=== PATIENT | male | born 1990 | race African-American/Black ===

== ENCOUNTER 2019-10-03 12:17 | Emergency (ER) | payer MEDICARE, BC, SELFPAY ==
[2019-10-03] VITALS (9 sets, daily range): BP systolic 78–104; BP diastolic 58–66; PULSE 65–94; RESP 17–21; TEMP 36.7; O2SAT 97–99
--- NOTE | 2019-10-03 12:20 | ECG_ITS ---
Measurements Intervals [place] Rate: 90 P: 55 FL: 137 QRS: -35 QRSD: 98 T: 9 QT: 366 QTc: 449 Interpretive Statements SINUS RHYTHM LEFT ATRIAL ENLARGEMENT LEFT AXIS DEVIATION POSSIBLE LEFT VENTRICULAR HYPERTROPHY BORDERLINE T WAVE ABNORMALITY- INFERIOR LEADS BASELINE WANDER- I, II, AVR, V1 BORDERLINE ECG Electronically Signed On 10-03-2019 13:19:36 CDT by Artur Benjamin D.O.
[2019-10-03 12:39] LABS: Basophils Percent Auto 0.4 % (0.2-1.2); Eosinophils Absolute Auto 0.1 K/mm3 (0-0.3); Eosinophils Percent Auto 1.9 % (0-4.4); Hematocrit 52.9 % (42.0-52.0); Hemoglobin 17.4 g/dL (14.0-18.0); Immature Granulocyte Absolute 0.01 K/mm3 (0.00-0.031); Immature Granulocyte Percent A 0.2 % (0-0.5); Lymphocytes Percent Auto 30.2 % (18.3-44.2); Mean Corpuscular HGB Conc 32.9 g/dl (32-36); Mean Corpuscular Volume 100.4 fl (80-100); Mean Platelet Volume 9.4 fl (7.4-10.4); Monocytes Absolute Auto 0.8 K/mm3 (0.1-0.6); Monocytes Percent Auto 17.1 % (2.6-8.5); Neutrophils Absolute Auto 2.3 K/mm3 (1.3-6.7); Neutrophils Percent Auto 50.2 % (45.5-73.1); Platelet Count Result 184 k/mm3 (150-375); Red Blood Count 5.27 M/mm3 (4.6-6.20); Red Cell Distribution Width 19.8 % (11.5-14.5); White Blood Count 4.6 K/mm3 (4.5-10.0)
[2019-10-03 12:52] LABS: Alanine Aminotransferase 32 U/L (4-50); Albumin Level 4.6 g/dL (3.5-5.1); Alkaline Phosphatase 190 U/L (38-126); Aspartate Amino Transferase 51 U/L (17-59); Bilirubin,Total 0.7 mg/dL (0.2-1.3); Blood Urea Nitrogen 35 mg/dL (9-20); Calcium 8.7 mg/dL (8.4-10.2); Carbon Dioxide 29 mmol/L (22-30); Chloride 97 mmol/L (98-107); Estimated CRCL calculation 10 ml/min; Estimated Glomerular Filt Rate 9; Glucose 100 mg/dL (75-110); Potassium 4.5 mmol/L (3.4-5.0); Sodium 138 mmol/L (137-145)
[2019-10-03] MEDS: SODIUM CHLORIDE 0.9% IV 500 ML 999 ML IV CONT ×2 (13:06→13:42)
[2019-10-03 13:25] LABS: Lactic Acid Reflex 1.4 mmol/L (0.7-2.1)
--- NOTE | 2019-10-03 13:45 | ED.WEAKNESS ---
HPI - Weakness General Chief complaint: Weakness Stated complaint: low bp Time Seen by Provider: 10/03/19 12:21 Source: patient Mode of arrival: ambulatory Limitations: no limitations History of Present Illness HPI Narrative: Patient is a 29-year-old male who presents to emergency department for evaluation of feeling weak took his blood pressure at home and noted that it was low patient had dialysis yesterday denies any recent illness injury or trauma or other complaints or any pain and on arrival is resting comfortably in the room in no distress patient is followed by nephrology. Patient on arrival is noted in no distress presents with normal gait Related Data Home Medications Medication Instructions Recorded Confirmed calcium acetate(phosphat bind) mg 10/03/19 dolutegravir-rilpivirine [Juluca] tablet PO 10/03/19 Allergies Allergy/AdvReac Type Severity Reaction Status Date / Time No Known Allergies Allergy Unverified 10/03/19 12:36 Review of Systems Review of Systems: All systems reviewed & are unremarkable except as noted in HPI and below PMFSH Past Medical History Medical History (Updated 10/03/19 @ 14:59 by Quincy Taveras PA-C) Chronic kidney disease Dependence on renal dialysis HIV (human immunodeficiency virus infection) Social History Social History (Updated 10/03/19 @ 13:49 by Quincy Taveras PA-C) Smoking status: Never smoker Gender identity (if verbalized by the patient): Male Exam Narrative: Exam Narrative: GENERAL: Well-appearing, well-nourished, and in no acute distress. HEAD: Normocephalic, atraumatic. EYES: PERRLA and EOMI. ENT: Nares clear, no rhinorrhea or epistaxis. Mucous membranes moist. Oropharynx without tonsillar hypertrophy exudate or other lesions. NECK: Supple. No adenopathy or masses CHEST: Clear to auscultation. No respiratory distress. No wheezes rales or rhonchi HEART: Regular rate and rhythm. No murmur heard. Normal peripheral pulses. ABDOMEN: Soft, nontender, nondistended EXTREMITIES: Normal range of motion. No edema. SKIN: Warm, dry, no rash. NEURO: No focal deficits. Alert and oriented x3. Cranial nerves II through XII grossly intact PSYCH: Normal mood and affect. Course Course Emergency Course: Discussed case with pressure tester operator who would like the patient to be seen in clinic tomorrow to hold his blood pressure medications until tomorrow agrees with the plan Consultations Consultation #1: Discussed case with Dr. Metz nephrology who would like the patient to hold blood pressure medicine and to be reevaluated in clinic tomorrow Date: 10/03/19 Vital Signs Vital signs: Vital Signs Temperature 98.1 F 10/03/19 12:23 Pulse Rate 93 10/03/19 12:23 Respiratory Rate 18 10/03/19 12:23 Blood Pressure 92/58 L 10/03/19 12:23 Pulse Oximetry 98 10/03/19 12:23 Temperature 98.1 F 10/03/19 12:23 Pulse Rate 71 10/03/19 14:49 Respiratory Rate 18 10/03/19 14:49 Blood Pressure 104/66 10/03/19 14:49 Pulse Oximetry 98 10/03/19 14:49 MDM - Weakness MDM Narrative Medical decision making narrative: Patient in the room at this time resting comfortably was able to ambulate without difficulty was not orthostatic was hydrated is aware of discussion with his pressure tester operator and will follow in clinic tomorrow. Patient is afebrile nontoxic-appearing no distress. Patient provided with reasons to return and agrees to do so if symptoms worsen. Patient may have been over dialyzed and coupled with his blood pressure medication may be the current issue. Patient will hold his blood pressure medicine and be seen tomorrow in clinic Lab Data Result diagrams: 10/03/19 12:32 10/03/19 12:32 Labs: Lab Results 10/03/19 10/03/19 10/03/19 Range/Units 12:32 12:32 13:07 WBC 4.6 (4.5-10.0) K/mm3 RBC 5.27 (4.6-6.20) M/mm3 Hgb 17.4 (14.0-18.0) g/dL Hct 52.9 H (42.0-52.0) % MCV 100.4 H (80-100) fl MCH
== END 2019-10-03 15:11 | disposition home or self-care (01) ==
PROVIDERS: Emergency Medicine Emergency Medical Services; Emergency Provider Emergency Medicine
DX: I95.9 Hypotension, unspecified (principal); N18.6 End stage renal disease; Z99.2 Dependence on renal dialysis; Z21 Asymptomatic human immunodeficiency virus [HIV] infection status
CPT/HCPCS: 36415; 80053; 83605; 85025; 93005; 96360; 96361; 99284; J7040

== ENCOUNTER 2020-04-18 18:35 | Observation (INO) | payer BC, MEDICARE, SELFPAY ==
[2020-04-18] VITALS (9 sets, daily range): BP systolic 107–122; BP diastolic 61–85; PULSE 54–87; RESP 16–21; TEMP 36.6; O2SAT 100; BMI 19.7
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
--- NOTE | ~2020-04-18 | US_ITS ---
EXAMINATION: US carotid duplex BI DATE: 04/19/2020 07:54 INDICATION: Syncope TECHNIQUE: Grayscale, color Doppler, and pulsed Doppler images of the cervical carotid arteries were obtained. The degree of vessel stenosis is placed in one of the following categories: normal, <50%, 5 0-69%, >=70% but less than near-occlusion, near-occlusion, or total occlusion. Note that percent sten osis relative to normal distal artery lumen diameter is indirectly measured from velocity measurement s as described by Usman, et al. Radiology 2003; 229:340-346. COMPARISON: None. FINDINGS: RIGHT: The right common carotid artery (CCA) peak systolic velocity (PSV) is 165 cm/s. The right internal ca rotid artery (ICA) PSV is 101 cm/s. The right ICA end-diastolic velocity (EDV) is 21 cm/s. The right ICA/CCA PSV ratio is 0.6. Grayscale and color Doppler images demonstrate no stenosis or plaque in the ICA. The external carotid artery (ECA) PSV is 130 cm/s. There is antegrade flow in the right vertebr al artery. LEFT: The left CCA PSV is 138 cm/s. The left ICA PSV is 114 cm/s. The left ICA EDV is 14 cm/s. The left ICA /CCA PSV ratio is 0.8. Grayscale and color Doppler images demonstrate no stenosis or plaque in the IC A. The ECA PSV is 128 cm/s. There is antegrade flow in the left vertebral artery. IMPRESSION: 1. Normal study with no evident plaque or stenosis in the bilateral carotid arteries. Reviewed, dictated and finalized at location A. IMPRESSION: 1. Normal study with no evident plaque or stenosis in the bilateral carotid art maricruz.
--- NOTE | 2020-04-18 18:39 | ECG_ITS ---
Measurements Intervals [place] Rate: 72 P: 50 AL: 145 QRS: -30 QRSD: 105 T: 16 QT: 391 QTc: 429 Interpretive Statements SINUS RHYTHM POSSIBLE LEFT ATRIAL ENLARGEMENT POSSIBLE LEFT VENTRICULAR HYPERTROPHY ST ELEVATION IN ANTERIOR LEADS WITH PEAKED T WAVES- CONSIDER EARLY REPOLARIZATION, ISCHEMIA OR HYPERKALEMIA BORDERLINE T WAVE ABNORMALITY- INFERIOR LEADS BASELINE WANDER- AVR, AVL, AVF, V2, V4 ABNORMAL ECG Electronically Signed On 04-19-2020 7:32:21 CDT by Artur Benjamin D.O.
[2020-04-18 18:50] LABS: Basophils Percent Auto 0.5 % (0.2-1.2); Eosinophils Absolute Auto 0.1 K/mm3 (0-0.3); Eosinophils Percent Auto 3.3 % (0-4.4); Hematocrit 52.3 % (42.0-52.0); Hemoglobin 17.3 g/dL (14.0-18.0); Immature Granulocyte Absolute 0.01 K/mm3 (0.00-0.031); Immature Granulocyte Percent A 0.2 % (0-0.5); Lymphocytes Absolute Auto 1.47 K/mm3 (0.9-3.2); Lymphocytes Percent Auto 34.3 % (18.3-44.2); Mean Corpuscular HGB Conc 33.1 g/dl (32-36); Mean Corpuscular Volume 108.7 fl (80-100); Mean Platelet Volume 9.8 fl (7.4-10.4); Monocytes Absolute Auto 0.5 K/mm3 (0.1-0.6); Monocytes Percent Auto 10.5 % (2.6-8.5); Neutrophils Absolute Auto 2.2 K/mm3 (1.3-6.7); Neutrophils Percent Auto 51.2 % (45.5-73.1); Platelet Count Result 159 k/mm3 (150-375); Red Blood Count 4.81 M/mm3 (4.6-6.20); Red Cell Distribution Width 15.5 % (11.5-14.5); White Blood Count 4.3 K/mm3 (4.5-10.0)
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
[2020-04-18 19:56] LABS: Anion Gap 14 mmol/L (8-16); Blood Urea Nitrogen 52 mg/dL (9-20); Calcium 8.7 mg/dL (8.4-10.2); Carbon Dioxide 32 mmol/L (22-30); Chloride 92 mmol/L (98-107); Estimated CRCL calculation 7 ml/min; Estimated Glomerular Filt Rate 6; Glucose 104 mg/dL (75-110); Potassium 4.5 mmol/L (3.4-5.0); Sodium 138 mmol/L (137-145)
[2020-04-18 20:08] LABS: Troponin I 0.066 ng/mL (0.000-0.034)
[2020-04-18] MEDS: ASPIRIN 81 MG CHEWABLE TABLET 324 MG PO (20:34)
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
--- NOTE | 2020-04-18 21:52 | PC.NURSE ---
This patient, Rita Love, was admitted to IMU Room 213-01. Patient/family oriented to hospital policies and general routines including ID bracelet, bed and alarms, visiting hours, pain management, procedures, bathroom and other care routines, personal items, smoking policy, room service/diet, and visiting hours. Information on how to activate the Rapid Response Team has been discussed. Patient/Family are encouraged to report perceived risks to care and to ask questions if they do not understand what they are told or what they should do.
[2020-04-19] VITALS (13 sets, daily range): BP systolic 108–146; BP diastolic 54–90; PULSE 53–81; RESP 16–18; TEMP 36–36.7; O2SAT 95–100
[2020-04-19 00:36] LABS: Troponin I 0.089 ng/mL (0.000-0.034)
[2020-04-19 03:18] LABS: Basophils Percent Auto 0.2 % (0.2-1.2); Eosinophils Absolute Auto 0.2 K/mm3 (0-0.3); Eosinophils Percent Auto 4.1 % (0-4.4); Hematocrit 47.3 % (42.0-52.0); Hemoglobin 15.8 g/dL (14.0-18.0); Lymphocytes Absolute Auto 1.95 K/mm3 (0.9-3.2); Lymphocytes Percent Auto 44.9 % (18.3-44.2); Mean Corpuscular HGB Conc 33.4 g/dl (32-36); Mean Corpuscular Volume 104.9 fl (80-100); Mean Platelet Volume 10.3 fl (7.4-10.4); Monocytes Absolute Auto 0.5 K/mm3 (0.1-0.6); Monocytes Percent Auto 10.4 % (2.6-8.5); Neutrophils Absolute Auto 1.8 K/mm3 (1.3-6.7); Neutrophils Percent Auto 40.4 % (45.5-73.1); Platelet Count Result 176 k/mm3 (150-375); Red Blood Count 4.51 M/mm3 (4.6-6.20); Red Cell Distribution Width 15.2 % (11.5-14.5); White Blood Count 4.3 K/mm3 (4.5-10.0)
[2020-04-19 03:27] LABS: Anion Gap 12 mmol/L (8-16); Blood Urea Nitrogen 57 mg/dL (9-20); Calcium 8.4 mg/dL (8.4-10.2); Carbon Dioxide 32 mmol/L (22-30); Chloride 92 mmol/L (98-107); Glucose 95 mg/dL (75-110); Potassium 4.7 mmol/L (3.4-5.0); Sodium 136 mmol/L (137-145); Troponin I 0.098 ng/mL (0.000-0.034)
[2020-04-19 04:08] LABS: Hepatitis B Surface Antigen Negative (Negative)
[2020-04-19 04:14] LABS: HAV RESULT Negative (Negative); Hepatitis B Core IgM Result Negative (Negative)
[2020-04-19 04:25] LABS: Hepatitis B Surface Antibody > 1000.00 s/c; Hepatitis C Virus Antibody Negative (Negative)
[2020-04-19 06:21] LABS: Hepatitis B Surface Anti Res Positive
[2020-04-19 09:04] LABS: Free T4 Free Thyroxine Reflex 1.07 ng/dL (0.78-2.19)
[2020-04-19] MEDS: CALCIUM ACETATE 667 MG TABLET PO ×3 (10:28→17:14)
[2020-04-19 11:34] LABS: Total Triiodothyronine (T3) 0.93 NG/ML (0.97-1.69)
--- NOTE | 2020-04-19 12:58 | PHAR ---
HOME MED OF [facility] 50VERIFIED
--- NOTE | 2020-04-19 13:20 | PC.NURSE ---
Transfer received from IMU per wheelchair. Report received from CYNDIE Lombardo.
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
--- NOTE | 2020-04-19 21:11 | ECHO_ITS ---
Patient Info Name: Rita Love Age: 29 years : 1990 Gender: Male Ht: 69 in Wt: 133 lbs BSA: 1.71 m2 HR: 59 bpm BP: 110 / 54 mmHg Heart Rhythm: Sinus Rhythm Technical Quality: Good Exam Date: 04/19/2020 8:44 AM Exam Location: [facility] Pulmonary Exam Room: [facility] Patient Status: Inpatient Admit Date: 04/18/2020 Staff Ordering Physician: Yan Pedraza MD [employer] General Manager: Thalia Gonzáles RDCS Attending Provider: Yan Pedraza MD Referring Physician: Milo AVILA; Exam Type: CA echo doppler color flow Study Info Indications - syncope hx/o esrd on hd Complete two-dimensional, color flow and Doppler transthoracic echocardiogram is performed. Summary 1. Complete two-dimensional, color flow and Doppler transthoracic echocardiogram is performed. 2. Moderate left ventricular hypertrophy with left ventricular function at the lower limit of normal. Left ventricular chamber size and diastolic function are normal with no regional wall motion abnormalities with an estimated ejection fraction of 50-55%. Biplane calculated EF 58%. Global longitudinal strain was -13%, consistent with mild systolic dysfunction. 3. Left atrial chamber dimension is mildly enlarged. 4. There is mild tricuspid valve regurgitation. 5. Borderline pulmonary hypertension, estimated pulmonary arterial systolic pressure is 36 mmHg. 6. Normal sinus rhythm. Left Ventricle Left ventricular chamber dimension is normal. Left ventricular systolic function is mildly reduced, estimated at 50-55%. There is no increased left ventricular wall thickness. Left ventricular septal wall motion is normal. The left ventricular diastolic function is normal. Global longitudinal strain is moderately elevated at 13 %. Moderate left ventricular hypertrophy with left ventricular function at the lower limit of normal. Left ventricular chamber size and diastolic function are normal with no regional wall motion abnormalities with an estimated ejection fraction of 50-55%. Biplane calculated EF 58%. Global longitudinal strain was -13%, consistent with mild systolic dysfunction. Right Ventricle Right ventricular chamber dimension is normal. Right ventricular systolic function is normal. Left Atria Left atrial chamber dimension is mildly enlarged. Right Atria Right atrial chamber dimension is normal. Aortic Valve The aortic valve is trileaflet. There is no aortic valve sclerosis. There is no aortic valve stenosis. There is no aortic valve regurgitation. Pulmonic Valve The pulmonic valve is normal. There is no pulmonic valve stenosis. There is trace pulmonic regurgitation. Mitral Valve The mitral valve has normal leaflets. There is no mitral valve stenosis. There is trace mitral valve regurgitation. Tricuspid Valve The tricuspid valve leaflets are normal. There is no significant tricuspid valve stenosis. There is mild tricuspid valve regurgitation. Borderline pulmonary hypertension, estimated pulmonary arterial systolic pressure is 36 mmHg. Pericardium/Pleural The pericardium appears normal. There is no pericardial effusion. Inferior Vena Cava Normal inferior vena cava with >50% collapse upon inspiration consistent with Empty right atrial pressure, 10 mmHg. Aorta The aortic root size at the sinus of Valsalva is normal. The prox ascending aorta size is normal. Left Ventricular Outflow Tract Name
[2020-04-20] VITALS (21 sets, daily range): BP systolic 132–176; BP diastolic 64–99; PULSE 54–98; RESP 16–18; TEMP 36–36.8
[2020-04-20 06:34] LABS: Albumin Level 3.9 g/dL (3.5-5.1); Anion Gap 14 mmol/L (8-16); Blood Urea Nitrogen 74 mg/dL (9-20); Calcium 8.9 mg/dL (8.4-10.2); Carbon Dioxide 29 mmol/L (22-30); Chloride 93 mmol/L (98-107); Glucose 85 mg/dL (75-110); Magnesium 2.9 mg/dL (1.6-2.3); Potassium 5.1 mmol/L (3.4-5.0); Sodium 136 mmol/L (137-145)
[2020-04-20 06:39] LABS: Estimated CRCL calculation 5 ml/min; Estimated Glomerular Filt Rate 4
--- NOTE | 2020-04-20 08:54 | PC.NURSE ---
Patient to dialysis per bed.
--- NOTE | 2020-04-20 12:58 | PM.PNNEP ---
Progress Note: A&P Assessment and Plan (1) End stage renal disease: Code(s): N18.6 - End stage renal disease Status: Chronic Assessment and Plan: hemodialysis today and resume outpatient dialysis treatment on Tuesday (usually does Tue///Saturdays) since he had a treatment today, he may not need a treatment on Tuesday follow electrolytes, volume status, and clearance (2) Syncope: Qualifiers: Syncope type: unspecified Qualified Code(s): R55 - Syncope and collapse Code(s): R55 - Syncope and collapse Status: Acute Assessment and Plan: due to hypotension (70 - 80s systolic) with recent outpatient dialysis treatments(?) no episodes while hospitalized evaluation to date negative (Echo, TSH, carotid doppler, head CT...etc) elevated troponin likely secondary to his ESRD (3) HIV (human immunodeficiency virus infection): Qualifiers: HIV symptom status: unspecified Qualified Code(s): B20 - Human immunodeficiency virus [HIV] disease Code(s): B20 - Human immunodeficiency virus [HIV] disease Status: Chronic Assessment and Plan: resumed on home medications Will continue to follow. Subjective Date/time seen: 04/20/20 12:58 Tolerating dialysis at the time of my visit (seen on HD at ~ 12:35PM); no apparent distress; no acute complaints or concerns voiced; no events overnight or earlier this AM. Exam Narrative: Exam Narrative: General: WD/WN AA male in NAD Heart: normal S1 and S2; no rub Lungs: clear to auscultation Abdomen: soft, nontender, nondistended, positive bowel sounds Extremities: no cyanosis or clubbing; no edema Skin: warm and dry Objective Data Vital Signs Vital Signs: Vital Signs Temp Pulse Resp BP Pulse Ox 04/20/20 12:30 98 156/99 H 04/20/20 12:15 82 138/71 04/20/20 12:00 81 146/86 H 04/20/20 11:45 83 152/86 H 04/20/20 11:30 77 148/77 H 04/20/20 11:15 82 138/80 04/20/20 11:00 77 150/83 H 04/20/20 10:45 75 148/78 H 04/20/20 10:30 84 176/90 H 04/20/20 10:15 73 145/87 H 04/20/20 10:01 71 150/84 H 04/20/20 09:46 65 147/95 H 04/20/20 09:31 72 161/92 H 04/20/20 09:18 36.6 C 64 16 132/64 04/20/20 09:13 64 161/91 H 04/20/20 08:00 57 L 04/20/20 04:00 54 L 04/20/20 00:00 72 04/19/20 23:55 36.7 C 72 18 146/85 H 95 04/19/20 20:00 62 04/19/20 16:58 36.7 C 72 16 132/90 97 04/19/20 16:00 67 04/19/20 14:00 81 Intake/Output Intake/Output: Intake & Output 04/17/20 04/18/20 04/19/20 04/20/20 23:59 23:59 23:59 23:59 Intake Total 940 300 Output Total 0 Balance 940 300 Meds/Results Medications: Active Medications Generic Name Dose Route Start Last Admin Trade Name Freq PRN Reason Stop Dose Admin Calcium Acetate 667 mg 04/19/20 09:20 04/20/20 08:49 Calcium Acetate 667 Mg Tablet PO Not Given TIDWM FE Albumin Human 50 mls @ 999 mls/hr 04/19/20 07:47 Albutein IVPB 05/19/20 07:48 Q10M PRN HYPOTENSION Radiology Results: ITS Impressions Head CT 04/18/20 19:26 IMPRESSION: 1. Normal head CT examination. Chest X-Ray 04/18/20 19:31 IMPRESSION: No acute cardiopulmonary findings. Carotid Doppler Study 04/19/20 08:22 IMPRESSION: 1. Normal study with no evident plaque or stenosis in the bilateral carotid arteries. Labs Labs: Laboratory Tests 04/19/20 02:28 04/20/20 05:28 Quality Patient seen/evaluated on hemodialysis treatment (03150).
[2020-04-20] MEDS: CALCIUM ACETATE 667 MG TABLET PO (13:26)
--- NOTE | 2020-04-20 13:27 | PC.NURSE ---
patient returned from dialysis per bed.
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
== END 2020-04-20 14:40 | disposition home or self-care (01) ==
LOC: ANHED 20:49 → ANHIMU 21:54 → ANH3MED 04-19 13:31 → ANHIMU 04-22 17:37
PROVIDERS: Internal Medicine Nephrology; Admitting Provider Family Medicine; Emergency Provider Emergency Medicine; PCP Internal Medicine Nephrology; Visit Provider Internal Medicine
DX: R55 Syncope and collapse (principal); N18.6 End stage renal disease; Z99.2 Dependence on renal dialysis; Z21 Asymptomatic human immunodeficiency virus [HIV] infection status; R79.89 Other specified abnormal findings of blood chemistry; V49.40XA Driver injured in collision with unspecified motor vehicles in traffic accident, initial encounter; Z79.899 Other long term (current) drug therapy
CPT/HCPCS: 36415; 70450; 71045; 80048; 80069; 80074; 82607; 83735; 84439; 84443; 84480; 84484; 85025; 86706; 93005; 93306; 93880; 99285; A9270; G0378; J1644; J7030